=== PATIENT | female | born 1995 | race Two or more races ===

== ENCOUNTER 2025-05-18 21:40 | Emergency (ER) | payer MEDICAID, SELFPAY ==
[2025-05-18 21:43] VITALS: BMI 36.6
[2025-05-18 23:28] VITALS: BP 110/70; PULSE 72; RESP 18; TEMP 37.1; O2SAT 96
--- NOTE | 2025-05-19 00:15 | PD.EDRME ---
Rapid Medical Screening Exam RME Arrival date/time: 05/18/25 21:40 30F with no significant PMH presents to ED wanting facial piercing removed because she damaged it today. Chief Complaint: General Adult/Misc Complain Time Seen by Provider: 05/19/25 00:10 Vital signs: Vital Signs Temperature 98.7 F 05/18/25 23:28 Pulse Rate 72 05/18/25 23:28 Respiratory Rate 18 05/18/25 23:28 Blood Pressure 110/70 05/18/25 23:28 Pulse Oximetry (%) 96 05/18/25 23:28 Oxygen Delivery Method Room Air 05/18/25 23:28
--- NOTE | 2025-05-19 00:29 | PC.NURSE ---
PT ELOPED AFTER TALKING TO PROVIDER.
== END 2025-05-19 00:30 | disposition left against medical advice (07) ==
LOC: SERX 05-19 00:16
PROVIDERS: Emergency Provider Emergency Medicine; PCP Obstetrics & Gynecology
DX: Z76.89 Persons encountering health services in other specified circumstances (principal); Z53.21 Procedure and treatment not carried out due to patient leaving prior to being seen by health care provider
CPT/HCPCS: 99283